=== PATIENT | female | born 1955 | race African-American/Black ===

== ENCOUNTER 2018-09-19 02:23 | Observation (INO) | payer MEDICARE, MEDICAID ==
[~2018-09-19] VITALS: Ht 149.9 cm; Wt 39.0 kg
[2018-09-19] VITALS (10 sets, daily range): BP systolic 109–122; BP diastolic 57–68; PULSE 71–88; TEMP 97.6–98
[2018-09-19 03:17] LABS: BASO % 0.2 % (0.0-2.0); EOS # 0.1 (0.0-0.7); EOS % 0.6 % (0-4.0); GRAN # 7.4 (1.4-6.5); GRAN % 85.2 % (42.2-75.2); LYMPH # 0.4 (1.2-3.4); MEAN CELL VOLUME 111 fl (80.0-100.0); MEAN CORPUSCULAR HEMOGLOBIN 39 pg (27.0-31.0); MEAN CORPUSCULAR HGB CONC 35 g/dl (33.0-37.0); MEAN PLATELET VOLUME 12.1 fl (7.4-10.4); MONO # 0.9 (0.1-0.6); MONO % 9.7 % (1.7-9.3); PLATELET COUNT 136 K/mm3 (130-400); RED BLOOD COUNT 2.57 M/mm3 (4.10-5.30)
[2018-09-19 03:19] LABS: HEMATOCRIT 28.6 % (37.0-47.0)
[2018-09-19 03:20] LABS: INR 1.1 (0.8-3.0)
[2018-09-19 03:23] LABS: PARTIAL THROMBOPLASTIN TIME 29.5 SECONDS (26.0-37.0)
[2018-09-19 03:26] LABS: ALBUMIN 3.6 gm/dL (3.5-5.0); BILIRUBIN,TOTAL 1.1 mg/dL (0.0-1.0); C-REACTIVE PROTEIN 2.1 mg/dL (0.0-0.9); CALCIUM 8.9 mg/dL (8.4-10.2); CREATININE, serum 0.92 mg/dL (0.52-1.25); TOTAL PROTEIN 6.9 gm/dL (6.4-8.2)
[2018-09-19] MEDS ORDERED: LIORESAL 1010 MG/TAB PO (03:27)
[2018-09-19] MEDS ORDERED: COMBIVIR PO ×2 (03:28→03:29)
[2018-09-19] MEDS ORDERED: LACTULOSE10 GM/153 PO (03:28)
[2018-09-19] MEDS ORDERED: BENTYL 20MG20 MG/TAB PO (03:28)
[2018-09-19] MEDS ORDERED: INTELENCE200 MG PO (03:28)
[2018-09-19] MEDS ORDERED: LASIX 40MG TABL40 MG PO (03:29)
[2018-09-19] MEDS ORDERED: NEXIUM 40MG40 MG PO (03:30)
[2018-09-19] MEDS ORDERED: CORGARD20 MG PO (03:30)
[2018-09-19] MEDS ORDERED: GOLYTELY1 PDR PO (03:30)
[2018-09-19] MEDS ORDERED: ZOFRAN 4MG T4 MG/TAB (03:31)
[2018-09-19] MEDS ORDERED: PERCOCET 325 MG1 TA2 (03:32)
[2018-09-19] MEDS ORDERED: K-DUR 10 MEQ T10 MEQ PO (03:32)
[2018-09-19] MEDS ORDERED: PROAIR HFA0.09 MG/AC IH (03:33)
[2018-09-19] MEDS ORDERED: PREDNISONE 5MG5 MG PO (03:33)
[2018-09-19] MEDS ORDERED: ALDACTONE 100M100 MG PO (03:33)
[2018-09-19] MEDS ORDERED: XIFAXAN550 MG PO (03:34)
[2018-09-19 08:17] LABS: COLLECTION METHOD CLEAN CATCH
[2018-09-19 08:52] LABS: MUCOUS Present /lpf; PH 6 (5-8); URINE APPEARANCE Clear; URINE BACTERIA None Seen /hpf; URINE BILIRUBIN Negative (NEGATIVE); URINE BLOOD Negative (NEGATIVE); URINE COLOR Yellow; URINE GLUCOSE Negative (NEGATIVE); URINE KETONE Negative (NEGATIVE); URINE LEUKOCYTE ESTERASE Negative (NEGATIVE); URINE NITRATE Negative (NEGATIVE); URINE PROTEIN(semi-quant) 1+ (NEGATIVE); URINE RBC 0-2 /hpf; URINE UROBILINOGEN Negative (NEGATIVE)
[2018-09-19 16:37] LABS: PERITONEAL FLUID RBC 0 /mm3 (0-0)
[2018-09-20 00:53] VITALS: BP 117/53; PULSE 81; TEMP 98.9
[2018-09-20 03:31] VITALS: BP 116/72; PULSE 84; TEMP 98.2
[2018-09-20 07:38] VITALS: BP 105/59; PULSE 69; TEMP 97.5
[2018-09-20 08:11] LABS: MEAN CORPUSCULAR HGB CONC 33 g/dl (33.0-37.0); MEAN PLATELET VOLUME 12.4 fl (7.4-10.4); PLATELET COUNT 91 K/mm3 (130-400); RED BLOOD COUNT 2.45 M/mm3 (4.10-5.30); REDCELL DISTRIBUTION WIDTH-CV 14.7 % (11.5-14.5)
[2018-09-20 08:22] LABS: ALBUMIN 2.9 gm/dL (3.5-5.0); BILIRUBIN,TOTAL 1.2 mg/dL (0.0-1.0); CALCIUM 8.3 mg/dL (8.4-10.2); CREATININE, serum 0.78 mg/dL (0.52-1.25); POTASSIUM 3.6 mmol/L (3.4-5.0)
[2018-09-20 08:27] LABS: HEMOGLOBIN 9.5 g/dl (12.5-16.0); MEAN CELL VOLUME 118 fl (80.0-100.0); MEAN CORPUSCULAR HEMOGLOBIN 39 pg (27.0-31.0)
[2018-09-20 08:30] LABS: BASO % 0.2 % (0.0-2.0); EOS % 0.6 % (0-4.0); GRAN # 3.5 (1.4-6.5); GRAN % 73.5 % (42.2-75.2); LYMPH # 0.4 (1.2-3.4); LYMPH % 8.1 % (20.0-51.0); MONO # 0.8 (0.1-0.6)
[2018-09-20 12:16] VITALS: BP 102/64; PULSE 71; TEMP 98.4
[2018-09-20] MEDS ORDERED: OMNICEF 300MG300 MG PO (13:28)
[2018-09-21 08:39] LABS: T HELPER (CD4) INDUCER CELLS 44.7 % (29.0-59.0)
== END 2018-09-20 15:20 | disposition home or self-care (01) ==
LOC: COL.ER 02:23 → SURG 05:47
PROVIDERS: Emergency Medicine; Internal Medicine Infectious Disease; Physician Assistant
DX: R18.8 Other ascites (principal); K52.9 Noninfective gastroenteritis and colitis, unspecified; D53.9 Nutritional anemia, unspecified; K74.60 Unspecified cirrhosis of liver; B20 Human immunodeficiency virus [HIV] disease; K75.4 Autoimmune hepatitis; K21.9 Gastro-esophageal reflux disease without esophagitis; K27.9 Peptic ulcer, site unspecified, unspecified as acute or chronic, without hemorrhage or perforation; K76.6 Portal hypertension; Z88.2 Allergy status to sulfonamides; Z91.040 Latex allergy status; Z86.73 Personal history of transient ischemic attack (TIA), and cerebral infarction without residual deficits
CPT/HCPCS: A4216; C9113; G0378; J0692; J0696; J2405; J2550; J3010; J7030; J7512; Q9967

== ENCOUNTER 2018-09-21 12:48 | Emergency (ER) | payer MEDICARE, MEDICAID ==
[~2018-09-21] VITALS: Ht 149.9 cm; Wt 38.6 kg
[~2018-09-21 12:48] MED LIST: ALDACTONE 100M100 MG PO; BENTYL 20MG20 MG/TAB PO; COMBIVIR PO; CORGARD20 MG PO; GOLYTELY1 PDR PO; INTELENCE200 MG PO; K-DUR 10 MEQ T10 MEQ PO; LACTULOSE10 GM/153 PO; LASIX 40MG TABL40 MG PO; LIORESAL 1010 MG/TAB PO; NEXIUM 40MG40 MG PO; OMNICEF 300MG300 MG PO; PERCOCET 325 MG1 TA2; PREDNISONE 5MG5 MG PO; PROAIR HFA0.09 MG/AC IH; XIFAXAN550 MG PO; ZOFRAN 4MG T4 MG/TAB
[2018-09-21 12:53] VITALS: BP 124/77; TEMP 98.8
[2018-09-21 14:08] LABS: BASO % 0.4 % (0.0-2.0); EOS # 0.1 (0.0-0.7); EOS % 1.4 % (0-4.0); GRAN # 3.5 (1.4-6.5); GRAN % 70.6 % (42.2-75.2); LYMPH # 0.4 (1.2-3.4); MEAN CORPUSCULAR HGB CONC 35 g/dl (33.0-37.0); MEAN PLATELET VOLUME 11.9 fl (7.4-10.4); MONO # 0.9 (0.1-0.6); PLATELET COUNT 73 K/mm3 (130-400); RED BLOOD COUNT 2.47 M/mm3 (4.10-5.30); REDCELL DISTRIBUTION WIDTH-CV 14.6 % (11.5-14.5)
[2018-09-21 14:13] LABS: HEMATOCRIT 27.8 % (37.0-47.0); HEMOGLOBIN 9.6 g/dl (12.5-16.0); MEAN CELL VOLUME 113 fl (80.0-100.0); MEAN CORPUSCULAR HEMOGLOBIN 39 pg (27.0-31.0)
[2018-09-21 14:23] LABS: ALBUMIN 2.8 gm/dL (3.5-5.0); BILIRUBIN,TOTAL 0.7 mg/dL (0.0-1.0); C-REACTIVE PROTEIN 1.9 mg/dL (0.0-0.9); CALCIUM 8.5 mg/dL (8.4-10.2); CREATININE, serum 0.81 mg/dL (0.52-1.25); POTASSIUM 3.4 mmol/L (3.4-5.0)
[2018-09-21 15:04] LABS: INR 1.2 (0.8-3.0); PROTHROMBIN TIME 13.9 SECONDS (9.7-12.8)
[2018-09-21 15:45] VITALS: PULSE 75
== END 2018-09-21 15:45 | disposition short-term general hospital (02) ==
LOC: COL.ER 12:48
PROVIDERS: Family Medicine
DX: K72.90 Hepatic failure, unspecified without coma (principal); K92.2 Gastrointestinal hemorrhage, unspecified; Z21 Asymptomatic human immunodeficiency virus [HIV] infection status
CPT/HCPCS: J1630; J2060; J2405; J7030